=== PATIENT | female | born 1960 | race Hispanic/Latino ===

== ENCOUNTER 2018-04-30 07:03 | Day surgery (SDC) | payer BC ==
[2018-04-29 14:09] VITALS: BMI 29.2
[2018-04-30] MEDS ORDERED: Lactated Ringer's 1,000 ML IV ONE ×2 (09:40)
[2018-04-30] MEDS ORDERED: Propofol 10 mg/ml Inj (20 ML) ONE (09:42)
[2018-04-30] MEDS ORDERED: Lidocaine Hydrochloride 5 ML INJ ONE (09:52)
[2018-04-30] MEDS ORDERED: Midazolam 2 MG/2 ML VIAL ONE (09:52)
[2018-04-30 12:15] VITALS: O2SAT 98
[2018-04-30 12:19] VITALS: BP 106/69; PULSE 67; RESP 14; TEMP 97.7
== END 2018-04-30 12:00 | disposition home or self-care (01) ==
LOC: C.ENDO 07:03
PROVIDERS: ATTEND Internal Medicine Gastroenterology
DX: Z12.11 Encounter for screening for malignant neoplasm of colon (principal); D12.7 Benign neoplasm of rectosigmoid junction; D12.5 Benign neoplasm of sigmoid colon; K64.8 Other hemorrhoids
CPT/HCPCS: 45380; 84703; 88305; J2250; J2704; J7120